=== PATIENT | female | born 1940 | race Caucasian/White ===

== ENCOUNTER 2019-08-05 12:19 | Emergency (ER) | payer MEDICARE, BC ==
[~2019-08-05] VITALS: Ht 152.4 cm; Wt 47.2 kg
--- NOTE | 2019-08-05 12:20 | NUR ---
CAME IN FOR CHRONIC BACK PAIN, GOT WORSE X 2 DAYS, AGGRAVATED BY POSITION CHANGE, TO ER BED 9, HOOKED TO MONITOR, CHANGED TO HOSP GOWN, AWAITING MD OSORIO.
--- NOTE | 2019-08-05 12:28 | NUR ---
DR RODAS AT BEDSIDE
--- NOTE | 2019-08-05 13:35 | NUR ---
CALLED [facility] [phone] FOR IT TO BE READ.
--- NOTE | 2019-08-05 14:20 | NUR ---
Patient discharged to home in stable condition. Written and verbal after care instructions given. Patient verbalizes understanding of instruction. Assisted to waiting room while waiting for CD.
[2019-08-05 15:20] VITALS: BP 132/74
== END 2019-08-05 14:30 | disposition home or self-care (01) ==
LOC: ER 12:21
DX: G89.29 Other chronic pain (principal); M54.9 Dorsalgia, unspecified
CPT/HCPCS: 71045-TC; 72110-TC

== ENCOUNTER 2024-12-04 15:39 | Emergency (ER) | payer MEDICARE, BC ==
[~2024-12-04] VITALS: Ht 147.3 cm; Wt 49.9 kg
[2024-12-04 15:47] VITALS: TEMP 98.3
[2024-12-04] MEDS ORDERED: ACET-2030 PO (17:09)
[2024-12-04 17:49] VITALS: BP 134/97; O2SAT 99
== END 2024-12-04 17:27 | disposition home or self-care (01) ==
LOC: ER 15:39
DX: S82.842A Displaced bimalleolar fracture of left lower leg, initial encounter for closed fracture (principal); W10.9XXA Fall (on) (from) unspecified stairs and steps, initial encounter; Y93.89 Activity, other specified; Y92.89 Other specified places as the place of occurrence of the external cause; Y99.8 Other external cause status
CPT/HCPCS: 73564-TC; 73610-TC